=== PATIENT | male | born 1980 | race Caucasian/White ===

== ENCOUNTER 2019-12-11 19:32 | Emergency (ER) | payer SELFPAY ==
[~2019-12-11] VITALS: Ht 165.1 cm; Wt 73.0 kg
[2019-12-11] MEDS ORDERED: MORPHINE SULFATE 4 MG/ML CPJ (NOT FOR IM USE) IV STA (21:48)
[2019-12-11] MEDS ORDERED: SODIUM CHLORIDE 0.9% 1,000 ML IV ONE (21:48)
[2019-12-11] MEDS ORDERED: ONDANSETRON HCL 4MG/2ML INJ IV STA (21:48)
[2019-12-11 22:25] LABS: BASOPHILS % 0.5 % (0.0-2.0); EOSINOPHILS % 3.4 % (0.0-5.0); HEMATOCRIT. 42.4 % (42.0-52.0); LYMPHOCYTES % 32.5 % (20.0-50.0); MEAN CORPUSCULAR HEMOGLOBIN 33.3 pg (28.0-32.0); MEAN PLATELET VOLUME 8.3 fl (7.4-10.4); NEUTROPHILS % 56.6 % (40.0-76.0); PLATELET 197 x1000/uL (130-400); RED BLOOD CELL COUNT 4.51 mill/uL (4.7-6.1); RED CELL DISTRIBUTION WIDTH 13.1 % (11.6-14.6)
[2019-12-11 22:35] LABS: CLARITY URINE CLEAR (CLEAR); COLOR URINE YELLOW (YELLOW); KETONES URINE NEGATIVE (NEGATIVE); LEUKOCYTE ESTERASE URINE NEGATIVE (NEGATIVE); NITRITE URINE NEGATIVE (NEGATIVE); OCCULT BLOOD URINE NEGATIVE (NEGATIVE); PH URINE 6.5 (4.5-8.0); PROTEIN URINE NEGATIVE (NEGATIVE); SPECIFIC GRAVITY URINE 1.027 (1.005-1.030)
[2019-12-11 22:47] LABS: CHLORIDE 108 mEq/L (98-107)
[2019-12-12 01:59] VITALS: BP 119/72
== END 2019-12-12 02:01 | disposition home or self-care (01) ==
LOC: ER 19:32
DX: R10.11 Right upper quadrant pain (principal); E78.00 Pure hypercholesterolemia, unspecified
CPT/HCPCS: 36415; 71045; 76705; 80053; 81003; 83690; 85025; 96361; 96374; 96375; 99285; J2270; J2405; J7030

== ENCOUNTER 2022-02-07 14:50 | Emergency (ER) | payer MEDICAID, OTHER ==
[~2022-02-07] VITALS: Ht 170.2 cm; Wt 79.0 kg
[2022-02-07 17:55] VITALS: BP 103/68
== END 2022-02-07 20:07 | disposition home or self-care (01) ==
LOC: ER 14:50
DX: F10.129 Alcohol abuse with intoxication, unspecified (principal); Y90.0 Blood alcohol level of less than 20 mg/100 ml; E78.00 Pure hypercholesterolemia, unspecified
CPT/HCPCS: 99283

== ENCOUNTER 2024-06-12 10:22 | Emergency (ER) | payer MEDICAID ==
[~2024-06-12] VITALS: Ht 152.4 cm; Wt 73.9 kg
[2024-06-12 10:42] VITALS: O2SAT 97
[2024-06-12] MEDS ORDERED: THROAT LOZENGES-BENZOCAINE/MENTH/CETYLPYRD CL LOZENGES MM ONE (12:45)
[2024-06-12] MEDS: KETOROLAC 15MG/ML VIAL IM ONE (13:05)
[2024-06-12] MEDS: THROAT LOZENGES-BENZOCAINE/MENTH/CETYLPYRD CL LOZENGES MM NR (13:15)
[2024-06-12] MEDS ORDERED: NAPR-681 MT (15:25)
[2024-06-12] MEDS ORDERED: BENZ1LOZ73 MT (15:25)
[2024-06-12 15:34] VITALS: BP 111/65; PULSE 70; RESP 18; TEMP 36.7; O2SAT 97
== END 2024-06-12 15:37 | disposition home or self-care (01) ==
LOC: ER 10:22
DX: R51.9 Headache, unspecified (principal); E78.00 Pure hypercholesterolemia, unspecified; F10.90 Alcohol use, unspecified, uncomplicated; Z79.1 Long term (current) use of non-steroidal anti-inflammatories (NSAID); Y90.9 Presence of alcohol in blood, level not specified
CPT/HCPCS: 70450; 96372; 99285; J1885; Z7610